=== PATIENT | female | born 1965 | race Caucasian/White ===

== ENCOUNTER → 2017-12-31 10:12 | Outpatient (CLI) | payer OTHER | END | disposition home or self-care (01) | LOC: D.CT 10:12 | DX: R10.9 Unspecified abdominal pain (principal) ==

== ENCOUNTER → 2018-01-06 07:53 | Outpatient (CLI) | payer OTHER | END | disposition home or self-care (01) | LOC: D.MRI 07:53 | DX: R16.0 Hepatomegaly, not elsewhere classified (principal) ==

== ENCOUNTER → 2018-01-18 10:53 | Outpatient (CLI) | payer OTHER | END | disposition home or self-care (01) | LOC: D.NM 10:53 | DX: R16.0 Hepatomegaly, not elsewhere classified (principal) ==

== ENCOUNTER → 2018-07-26 07:43 | Outpatient (CLI) | payer OTHER | END | disposition home or self-care (01) | LOC: D.US 07:43 | DX: R16.0 Hepatomegaly, not elsewhere classified (principal) ==